=== PATIENT | female | born 1955 | race Caucasian/White ===

== ENCOUNTER → 2019-11-18 | Outpatient (CLI) | payer MEDICARE ==
--- NOTE | 2020-01-01 08:52 | SLEEPCENT ---
DATE: 11/18/2019 ORDERED BY: Brandi White NP Nocturnal polysomnography was performed for evaluation of sleep physiology in this patient with a prior history of obstructive sleep apnea syndrome. Seven hours and 42 minutes of data were reviewed. There were 265.5 minutes of sleep identified. Sleep latency was prolonged at 31.5 minutes. REM latency was normal at 84 minutes. Sleep architecture was poor with a prolonged period of wake after 2:30 in the morning. Overall sleep efficiency was 56.5%. There were two recorded REM cycles. The patient's electrocardiogram showed a sinus rhythm with an average heart rate 62 beats per minutes. EEG showed normal waveforms for awake and sleep. There were 57 respiratory events identified of ten seconds in duration or greater for an apnea-hypopnea index of 13.3. The events were primarily obstructive not exclusive to sleep stage nor body posture. Arousals from respiratory events occurred 11.9 times per hour. Oxygen desaturations were seen below 90%. There was some activity noted in the limb leads, but limb movement arousals were few. Snoring was noted over the course of the study. IMPRESSION: Obstructive sleep apnea syndrome (G47.33), apnea-hypopnea index 13.3. RECOMMENDATIONS: The patient should be encouraged to return to [facility] for [facility]. In the interim, alcohol and sedative avoidance should be practiced and caution exercised during the operation of motor vehicles /luh Guerrero edited: 02/14/2020 1100 tkf MTDD
== END ==
LOC: M SLEEP 20:00
PROVIDERS: ATTEND Nurse Practitioner Adult Health
DX: G47.30 Sleep apnea, unspecified (principal)